=== PATIENT | male | born 1995 | race African-American/Black ===

== ENCOUNTER 2025-01-13 18:43 | Emergency (ER) | payer BC, SELFPAY ==
[2025-01-13 18:45] VITALS: BP 101/74; PULSE 99; RESP 18; TEMP 36.6; O2SAT 97
[2025-01-13 19:44] VITALS: BP 120/70; PULSE 75; RESP 15; O2SAT 98
[2025-01-13 20:00] VITALS: PULSE 71; RESP 18; O2SAT 98
--- NOTE | 2025-01-13 20:13 | EX.ED.DYSGE1 ---
HPI History of Present Illness Chief Complaint: Hyperglycemia Informant: patient Onset/Context/Timing Onset: Today Context: Gradual Onset Timing: Continuous Quality: Aching Location: Abdomen Worsened by: Nothing Relieved by: Nothing Narrative Narrative: Patient presents with nausea, vomiting, and elevated blood sugars. Patient states he started having nausea and vomiting today. Patient states his blood sugars have been elevated since he ran out of his insulin. Patient states he ran out of insulin about a week ago. Patient states he had some blood in his emesis today when he vomited. Patient states it was only 1 time. Patient also states he is out of his metformin. Patient denies any visual changes. Patient denies any chest pain or shortness of breath. [facility] Medical History (Updated 01/14/25 @ 00:[address] Simon Huffman DO) Diabetes Physical exam, pre-employment Home Medications ?Medication ?Instructions ?Recorded ?Last Taken ?Type insulin regular hum U-500 conc 500 12 unit (0.024 mL) subcut BID #3 mL 01/14/25 Unknown Rx unit/mL(3 mL) subcut pen (Humulin R U-500 (Conc) Insulin Kwikpen) metformin 500 mg tablet 1,000 mg (2 x 500 mg) PO BID #40 01/14/25 Unknown Rx tabs Allergy/AdvReac Type Severity Reaction Status Date / Time No Known Allergies Allergy Verified 01/13/25 18:47 Surgical History (Updated 01/13/25 @ 23:[address] Simon Huffman DO) Hx of circumcision Social History Smoking Status: Never smoker ROS ROS ED Constitutional Constitutional ED: Reports chills; Denies fever(s) Eyes Eyes: Denies blurry vision or change in vision ENT ENT ED: Denies rhinorrhea or sore throat Cardiovascular Cardiovascular: Denies chest pain or palpitations Respiratory/Chest Respiratory/Chest: Denies cough or dyspnea Gastrointestinal Gastrointestinal: Denies nausea or vomiting Genitourinary Genitourinary ED: Denies dysuria or hematuria Musculoskeletal Musculoskeletal: Denies back pain or neck pain Integumentary Denies abscess or rash Neurologic Neurologic: Reports headache(s); Denies weakness Allergic/Immunologic Allergic/Immunologic ED: Denies mouth swelling or urticaria EXAM Physical Exam Const Vital Signs: 01/13/25 18:45 01/13/25 19:44 01/13/25 20:00 Temperature 97.9 F Temperature Source Oral Pulse Rate 99 75 71 Respiratory Rate 18 15 18 Respiratory Effort Respiratory Pattern Blood Pressure 101/74 120/70 Blood Pressure Mean 83 86 Pulse Ox 97 98 98 Oxygen Delivery Method Room Air Room Air Room Air 01/13/25 20:08 01/13/25 21:00 01/13/25 22:00 Temperature Temperature Source Pulse Rate 74 67 Respiratory Rate 13 22 H Respiratory Effort Normal Respiratory Pattern Normal Blood Pressure 125/65 H 117/76 Blood Pressure Mean 85 89 Pulse Ox 100 98 Oxygen Delivery Method Room Air Room Air 01/13/25 23:00 01/14/25 00:00 Temperature 98 F Temperature Source Pulse Rate 67 67 Respiratory Rate 18 19 H Respiratory Effort Respiratory Pattern Blood Pressure 109/59 L 110/59 L Blood Pressure Mean 75 76 Pulse Ox 97 100 Oxygen Delivery Method Room Air Positive well nourished and well developed General Appearance ED: well developed and NAD HEENT Reports moist mucous membranes Neck supple and no JVD Resp normal respiratory effort and clear to auscultation bilaterally Cardio regular rate and regular rhythm GI non-distended Palpation: soft and tender epigastric, LLQ, RLQ, LUQ, RUQ, periumbilical and suprapubic Extremity normal to inspection General Extremety ED: Negative for edema or tenderness General Extremity: Negative for edema Neuro oriented x3, CN's II-XII intact bilaterally and no sensory deficits noted Sensorium / Orientation: alert Motor Exam: strength 5/5 throughout Psych mental status grossly normal MDM MDM MDM Narrative Medical decision making narrative: Differential diagnosis includes hyperglycemia, diabetic ketoacidosis, hyperglycemic hyperosmolar nonketotic state, dehydration, viral illness, and electrolyte abnormality. CBC will be obtained to assess for leukocytosis and anemia. Comprehensive metabolic profile will be obtained to assess for hepatic function, renal function, and electrolyte abnormality. Lipase will be obtained to assess for pancreatitis. Beta hydroxybutyrate will be obtained to assess for DKA. Serum lactate will be obtained to assess for sepsis. Urinalysis will be obtained to assess for urinary tract infection and hematuria. Venous blood gas will be obtained to assess for pH status. History & Record Review Additional record(s) reviewed:: Prior outpatient record Lab Data Attestation: I reviewed the patient's lab results. Lab results narrative: CBC was reviewed and was within normal limits. Comprehensive metabolic profile was reviewed. Glucose was elevated at 639. CO2 was normal at 26. Chloride was slightly low at 93. Anion gap was minimally elevated at 16. Alkaline phosphatase was slightly elevated at 213. The remainder is within normal limits. Lipase was reviewed and was normal at 15. Beta hydroxybutyrate is slightly elevated at 3.1. Urinalysis was reviewed. There is no evidence of urinary tract infection or hematuria. Urine glucose was 1000. Urine ketones were 50. Labs: Laboratory Results - last 24 hr 01/13/25 01/13/25 01/13/25 19:15 20:20 21:08 WBC 7.2 RBC 5.64 Hgb 15.7 Hct 44.0 MCV 78.0 L MCH 27.8 MCHC 35.7 RDW Std Deviation 30.5 L RDW Coeff of Rehana 10.9 L Plt Count 207 MPV 12.4 H Immature Gran % (Auto) 0.100 Neut % (Auto) 76.6 H Lymph % (Auto) 15.7 L [place] % (Auto) 5.2 Eos % (Auto) 2.0 Baso % (Auto) 0.4 Absolute Neuts (auto) 5.5 Absolute Lymphs (auto) 1.12 Nucleated RBC % 0 Sodium 136 Potassium 4.2 Chloride 93 L Carbon Dioxide 26.0 Anion Gap 16 H BUN 10 Creatinine 1.15 Est GFR (MDRD) Non-Af 89 BUN/Creatinine Ratio 8.6 L Glucose 639 H* Lactic Acid < 1.0 Calcium 9.8 Total Bilirubin 0.36 AST 40 H ALT 44 Alkaline Phosphatase 213 H Total Protein 7.9 Albumin 4.8 Globulin 3.1 Albumin/Globulin Ratio 1.5 Lipase 15 b-Hydroxybutyric mmol/L 3.1 H Urine Color Yellow Urine Clarity Clear Urine pH 6.5 Ur Specific [place] 1.010 Urine Protein Negative Urine Glucose (UA) 1000 H Urine Ketones 50 H Urine Occult Blood Negative Urine Nitrite Negative Urine Bilirubin Negative Urine Urobilinogen Normal Ur Leukocyte Esterase Negative Urine RBC 0 SEEN Urine WBC 0-5 SEEN Ur Squamous Epith Cells 0 SEEN Urine Bacteria 0 SEEN Urine Mucus 0 SEEN POC Glucose 01/13/25 21:45 WBC RBC Hgb Hct MCV MCH MCHC RDW Std Deviation RDW Coeff of Rehana Plt Count MPV Immature Gran % (Auto) Neut % (Auto) Lymph % (Auto) [place] % (Auto) Eos % (Auto) Baso % (Auto) Absolute Neuts (auto) Absolute Lymphs (auto) Nucleated RBC % Sodium Potassium Chloride Carbon Dioxide Anion Gap BUN Creatinine Est GFR (MDRD) Non-Af BUN/Creatinine Ratio Glucose Lactic Acid Calcium Total Bilirubin AST ALT Alkaline Phosphatase Total Protein Albumin Globulin Albumin/Globulin Ratio Lipase b-Hydroxybutyric mmol/L Urine Color Urine Clarity Urine pH Ur Specific [place] Urine Protein Urine Glucose (UA) Urine Ketones Urine Occult Blood Urine Nitrite Urine Bilirubin Urine Urobilinogen Ur Leukocyte Esterase Urine RBC Urine WBC Ur Squamous Epith Cells Urine Bacteria Urine Mucus POC Glucose 436 H ABG Data Attestation: I personally reviewed and interpreted this ABG as follows: Interpretation: Venous blood gas was reviewed. pH was normal at 7.43. pO2 is low at 45, bicarb was normal at 29. Oxygen saturation was 82%. ABG results: ABG 01/13/25 20:41 Specimen Type JJ Sample Site Not entered VBG pH 7.43 H VBG pO2 45 H VBG HCO3 29 H VBG Total CO2 30 VBG O2 Sat (Calc) 82 H VBG Base Excess 4 H POC Mix VBG pCO2 Pt Tmp 43.3 O2 Delivery Device Room Air Treatment and Re-Evaluation :: Patient was given IV fluids and Zofran. Patient was feeling somewhat better on reevaluation. Because of the elevated blood sugar, patient was given a dose of insulin and a repeat bolus of normal saline. BGT was repeated and was 436. Patient was feeling better on reevaluation. Patient was advised of his findings. Patient was given a refill for his insulin and metformin. Patient was instructed to follow-up with a primary care physician in 5 to 7 days. Patient was instructed to return if worse in any way. Patient understood and was agreeable with the plan. All questions were answered. Discharge Plan Triage Chief Complaint: Hyperglycemia ED Provider: Simon Huffman Dx/Rx/DC Orders Clinical Impression: Hyperglycemia, Nausea and vomiting Instructions: ED Diabetic Hyperglycemia Prescriptions: Continued metformin 500 mg tablet 1,000 mg PO BID Qty: 40 0RF Humulin R U-500 (Conc) Kwikpen 500 unit/mL (3 mL) insulin pen 12 unit subcut BID Qty: 3 0RF Rx Instructions: 12 UNITS IN THE MORNING, 7 UNITS QHS Primary Care Provider: Care Physician,No Primary Referrals: Yamile Jones MD [Med Staff - Handling Tech] - 5-7 Days Care Physician,No Primary [Primary Care Provider] - Print Language: Persian Disposition Disposition: Home, Self Care
[2025-01-13] MEDS: 0.9% Normal Saline (1000mL) 1,000 ML 1000 ML IV ×2 (20:20→21:47)
[2025-01-13 20:38] LABS: Hematocrit 44.0 % (40-54); Hemoglobin 15.7 g/dL (13.0-16.5); Immature Granulocytes Count 0.010 X10^3/uL (0.0-0.0); Mean Corp Hgb Conc 35.7 g/dL (32-36); Mean Corpuscular Volume 78.0 fL (80-94); Mean Platelet Vol. 12.4 fl (6.2-12.0); NRBC Flagged by Analyzer 0 % (0-5); Platelet Count 207 K/mm3 (150-450); RBC Distribution Width CV 10.9 % (11.6-14.6); RBC Distribution Width SD 30.5 fl (35.1-43.9); Red Blood Count 5.64 M/mm3 (4.6-6.2); White Blood Count 7.2 K/mm3 (4.4-11.0)
[2025-01-13 20:45] LABS: SITE Not entered; VBG BASE EXCESS 4 mmol/L (-1.0-3.5); VBG PO2 45 mmHg (25-40); VBG SO2 82 % (50-70); VBG TCO2 30 mmol/L (23-33)
[2025-01-13 21:00] VITALS: BP 125/65; PULSE 74; RESP 13; O2SAT 100
[2025-01-13 21:13] LABS: BETA-HYDROXYBUTYRATE 3.1 mmol/L (0.0-0.3); Lipase 15 U/L (13-75)
[2025-01-13 21:14] LABS: Mucous, Urine 0 SEEN /hpf (<or=2+); Red Blood Cells-Urine 0 SEEN /hpf (0-5); Squamous Epithelial Cells - UA 0 SEEN /hpf (0-5)
[2025-01-13 21:25] LABS: AST(SGOT) 40 U/L (<=37); Alanine Aminotransfer ALT/SGPT 44 U/L (<=46); Albumin, Serum 4.8 g/dL (3.5-5.0); Alkaline Phosphatase 213 U/L (40-129); Anion Gap 16 (5-15); BUN 10 mg/dL (4-19); BUN/Creat Ratio 8.6 RATIO (10-20); Calcium,Total 9.8 mg/dL (7.6-11.0); Carbon Dioxide 26.0 mmol/L (21.0-32.0); Chloride 93 mmol/L (98-108); Globulin 3.1 g/dL (2.2-4.2); Glucose 639 mg/dL (70-99); Potassium 4.2 mmol/L (3.3-5.1)
[2025-01-13 21:29] LABS: Color, Urine Yellow (Yellow); Glucose, Dipstick 1000 mg/dl (Normal); Ketone-Dipstick 50 mg/dl (Negative); Leukocyte Esterase-Dipstick Negative /ul (Negative); Nitrite-Dipstick Negative (Negative); Occult Blood-Urine Negative /ul (Negative); Protein-Dipstick Negative (Negative); Specific Gravity, Urine 1.010 (1.002-1.030); Urine Bilirubin Dipstick Negative (Negative)
[2025-01-13 21:35] VITALS: BMI 20.4
[2025-01-13 21:51] VITALS: BMI 20.4
[2025-01-13 22:00] VITALS: BP 117/76; PULSE 67; RESP 22; O2SAT 98
[2025-01-13 23:00] VITALS: BP 109/59; PULSE 67; RESP 18; O2SAT 97
[2025-01-14] VITALS: BP 110/59; PULSE 67; RESP 19; TEMP 36.6; O2SAT 100
--- NOTE | 2025-01-14 01:21 | ED.RN ---
Blood glucose checked prior to discharge, result 79. Pt given sandwich, cheese and trail mix to eat.
== END 2025-01-14 01:22 | disposition home or self-care (01) ==
PROVIDERS: Emergency Provider Emergency Medicine; Visit Provider Emergency Medicine
DX: E11.65 Type 2 diabetes mellitus with hyperglycemia (principal); Z79.4 Long term (current) use of insulin; R11.2 Nausea with vomiting, unspecified; Z79.84 Long term (current) use of oral hypoglycemic drugs
CPT/HCPCS: 80053; 81001; 82010; 82803; 82962; 83605; 83690; 85025; 96361; 96374; 99285; A4216; J2405

== ENCOUNTER 2025-03-08 08:46 | Observation (INO) | payer SELFPAY ==
[2025-03-08 08:47] VITALS: BP 136/86; PULSE 93; RESP 18; TEMP 37.1; O2SAT 93; BMI 21.0
--- NOTE | 2025-03-08 09:11 | EX.ED.DYSGE1 ---
HPI History of Present Illness Chief Complaint: Hyperglycemia Narrative Narrative: Patient is a 29-year-old male with past medical history of type 1 diabetes who presents to the emergency department for elevated blood glucose. Patient states that yesterday he ran out of his insulin and notes that this morning he was not feeling well checked his glucose and was noted to be in the 500s prompting him to come here to the emergency department to be further evaluated. Patient states that before going to bed last night he felt his usual self and had no complaints. [facility] Medical History Diabetes Physical exam, pre-employment Home Medications ?Medication ?Instructions ?Recorded ?Last Taken ?Type insulin regular hum U-500 conc 500 12 unit subcut DAILY 03/08/25 03/07/25 History unit/mL(3 mL) subcut pen (Humulin R U-500 (Conc) Insulin Kwikpen) insulin regular human 100 unit/mL 7 unit subcut QHS 03/08/25 03/07/25 History injection solution (Humulin R Regular U-100 Insulin) metformin 500 mg tablet 500 mg PO BID 03/08/25 03/07/25 History Allergy/AdvReac Type Severity Reaction Status Date / Time No Known Allergies Allergy Verified 03/08/25 08:47 Surgical History Hx of circumcision Social History Smoking Status: Never smoker ROS ROS ED ROS Narrative Constitutional: Denies any fevers, chills, headaches Eyes: Denies double vision Cardiovascular: Denies chest pain Respiratory: Denies shortness of breath denies coughing Abdomen: Complains of nausea denies any abdominal pain vomiting diarrhea : Denies any urinary symptoms Neurological: Denies any numbness, weakness, tingling Musculoskeletal: Denies back pain Skin: Denies any rashes or lesions EXAM Physical Exam Narrative Exam Narrative: General: Patient lying in bed resting comfortably did not appear to be acute distress Head: Atraumatic, normocephalic Eyes: PERRL bilaterally, EOMI bilaterally, no conjunctival injection noted Neck: Soft, supple, trachea midline Cardiovascular: Regular rate and rhythm no murmurs gallops rubs noted Respiratory: Clear to auscultation bilaterally no rales rhonchi or wheezes noted Abdomen: Soft, nondistended, no tenderness to palpation Extremities: +5/5 strength noted in the bilateral lower extremity Neurological: Patient follow commands and that he was at [facility] the year is 2024 Skin: Warm, dry, patient has a well-healing wound noted to his left forearm when inquiring about this as he did not tell me about this he states that he burned his arm last Saturday at work no concern for infection in this area at this point in time no surrounding redness no purulent discharge scabbed over Const Vital Signs: 03/08/25 08:47 03/08/25 09:21 03/08/25 10:22 Temperature 98.7 F Temperature Source Oral Pulse Rate 93 78 Respiratory Rate 18 16 Respiratory Effort Normal Respiratory Pattern Normal Blood Pressure 136/86 H Blood Pressure Mean 102 Pulse Ox 93 100 Oxygen Delivery Method Room Air 03/08/25 11:04 Temperature 98.1 F Temperature Source Oral Pulse Rate 86 Respiratory Rate 16 Respiratory Effort Respiratory Pattern Blood Pressure 102/56 L Blood Pressure Mean 71 Pulse Ox 96 Oxygen Delivery Method Room Air MDM MDM MDM Narrative Medical decision making narrative: Patient is a 29-year-old male who presents to the emergency department chief complaint of hyperglycemia. On the differential diagnose includes but not limited to hyperglycemia secondary to a running out of his insulin, DKA, HHS. Once workup is obtained reviewed he will be reevaluated. Patient be given 2 L of fluid, 10 units subcutaneous insulin. Patient's CBC was reviewed which showed a leukocytosis of 13,000 this likely reactive, hemoglobin 15, platelet count of 212. Patient's venous gas showed a pH 7.41, sodium was 133, potassium 3.3 he will be given 40 mill equivalents of supplementation here. Patient's anion gap was noted be 18, carbon dioxide was 20.9, glucose elevated to 466. Patient's beta hydroxybutyrate elevated 2.6, urinalysis reviewed and showed 50 ketones of thousand glucose. Patient's bedside glucose was noted be 303 on repeat after the insulin. At this point time will discuss case with hospitalist for admission for his diabetes management as he is likely early onset DKA although at this point time do not believe he requires insulin drip however will discuss with them in regards to further management. After discussion with hospitalist Dr. Kotsonis he agrees that the patient does not require insulin drip and will accept the patient to the hospital for admission. Patient was notified is agreeable this plan all question concerns answered at bedside. Lab Data Labs: Laboratory Results - last 24 hr 03/08/25 03/08/25 03/08/25 08:34 09:11 10:52 WBC 13.0 H RBC 5.50 Hgb 15.1 Hct 43.0 MCV 78.2 L MCH 27.5 MCHC 35.1 RDW Std Deviation 31.0 L RDW Coeff of Rehana 11.0 L Plt Count 212 MPV 12.7 H Immature Gran % (Auto) 0.400 Neut % (Auto) 73.9 H Lymph % (Auto) 18.5 L [place] % (Auto) 5.7 Eos % (Auto) 1.2 Baso % (Auto) 0.3 Absolute Neuts (auto) 9.6 H Absolute Lymphs (auto) 2.40 Nucleated RBC % 0 Sodium 133 Potassium 3.3 Chloride 95 L Carbon Dioxide 20.9 L Anion Gap 18 H BUN 15 Creatinine 1.04 Estim Creat Clear Calc 96.62 Est GFR (MDRD) Non-Af 100 BUN/Creatinine Ratio 14.3 Glucose 466 H* Calcium 9.8 Total Bilirubin 0.31 AST 28 ALT 28 Alkaline Phosphatase 139 H Total Protein 7.5 Albumin 4.4 Globulin 3.0 Albumin/Globulin Ratio 1.5 b-Hydroxybutyric mmol/L 2.6 H Urine Color Yellow Urine Clarity Clear Urine pH 6.0 Ur Specific [place] 1.015 Urine Protein Negative Urine Glucose (UA) 1000 H Urine Ketones 50 H Urine Occult Blood Negative Urine Nitrite Negative Urine Bilirubin Negative Urine Urobilinogen Normal Ur Leukocyte Esterase Negative Urine RBC 0 SEEN Urine WBC 0 SEEN Ur Squamous Epith Cells 0 SEEN Urine Bacteria 0 SEEN Urine Mucus 0 SEEN POC Glucose 376 H 03/08/25 10:59 WBC RBC Hgb Hct MCV MCH MCHC RDW Std Deviation RDW Coeff of Rehana Plt Count MPV Immature Gran % (Auto) Neut % (Auto) Lymph % (Auto) [place] % (Auto) Eos % (Auto) Baso % (Auto) Absolute Neuts (auto) Absolute Lymphs (auto) Nucleated RBC % Sodium Potassium Chloride Carbon Dioxide Anion Gap BUN Creatinine Estim Creat Clear Calc Est GFR (MDRD) Non-Af BUN/Creatinine Ratio Glucose Calcium Total Bilirubin AST ALT Alkaline Phosphatase Total Protein Albumin Globulin Albumin/Globulin Ratio b-Hydroxybutyric mmol/L Urine Color Urine Clarity Urine pH Ur Specific [place] Urine Protein Urine Glucose (UA) Urine Ketones Urine Occult Blood Urine Nitrite Urine Bilirubin Urine Urobilinogen Ur Leukocyte Esterase Urine RBC Urine WBC Ur Squamous Epith Cells Urine Bacteria Urine Mucus POC Glucose 303 H ABG Data ABG results: ABG 03/08/25 09:51 Specimen Type JJ Sample Site Not entered VBG pH 7.41 VBG pO2 79 H VBG HCO3 24 VBG Total CO2 25 VBG O2 Sat (Calc) 96 H VBG Base Excess -1 POC Mix VBG pCO2 Pt Tmp 38.3 L O2 Delivery Device Not entered Discharge Plan Dx/Rx/DC Orders Clinical Impression: Hyperglycemia, History of diabetes mellitus, type I Disposition Disposition: Acute Care Hospital [facility]
[2025-03-08 09:29] LABS: Hematocrit 43.0 % (40-54); Hemoglobin 15.1 g/dL (13.0-16.5); Immature Granulocytes Count 0.050 X10^3/uL (0.0-0.0); Mean Corp Hgb Conc 35.1 g/dL (32-36); Mean Corpuscular Volume 78.2 fL (80-94); Mean Platelet Vol. 12.7 fl (6.2-12.0); NRBC Flagged by Analyzer 0 % (0-5); Platelet Count 212 K/mm3 (150-450); RBC Distribution Width CV 11.0 % (11.6-14.6); RBC Distribution Width SD 31.0 fl (35.1-43.9); Red Blood Count 5.50 M/mm3 (4.6-6.2); White Blood Count 13.0 K/mm3 (4.4-11.0)
[2025-03-08 09:55] LABS: BETA-HYDROXYBUTYRATE 2.6 mmol/L (0.0-0.3)
[2025-03-08 09:55] LABS: SITE Not entered; VBG BASE EXCESS -1 mmol/L (-1.0-3.5); VBG PO2 79 mmHg (25-40); VBG SO2 96 % (50-70); VBG TCO2 25 mmol/L (23-33)
[2025-03-08 09:58] LABS: AST(SGOT) 28 U/L (<=37); Alanine Aminotransfer ALT/SGPT 28 U/L (<=46); Albumin, Serum 4.4 g/dL (3.5-5.0); Alkaline Phosphatase 139 U/L (40-129); Anion Gap 18 (5-15); BUN 15 mg/dL (4-19); BUN/Creat Ratio 14.3 RATIO (10-20); Calcium,Total 9.8 mg/dL (7.6-11.0); Carbon Dioxide 20.9 mmol/L (21.0-32.0); Chloride 95 mmol/L (98-108); Estimated Creatinine Clearance 96.62 ml/min (50-250); Globulin 3.0 g/dL (2.2-4.2); Glucose 466 mg/dL (70-99); Potassium 3.3 mmol/L (3.3-5.1)
[2025-03-08] MEDS: 0.9% Normal Saline (1000mL) 1,000 ML 999 ML IV ×2 (10:20)
[2025-03-08 10:22] VITALS: PULSE 78; RESP 16; O2SAT 100
[2025-03-08 11:01] LABS: Mucous, Urine 0 SEEN /hpf (<or=2+); Red Blood Cells-Urine 0 SEEN /hpf (0-5); Squamous Epithelial Cells - UA 0 SEEN /hpf (0-5)
[2025-03-08 11:04] VITALS: BP 102/56; PULSE 86; RESP 16; TEMP 36.7; O2SAT 96
[2025-03-08 11:04] LABS: Color, Urine Yellow (Yellow); Glucose, Dipstick 1000 mg/dl (Normal); Ketone-Dipstick 50 mg/dl (Negative); Leukocyte Esterase-Dipstick Negative /ul (Negative); Nitrite-Dipstick Negative (Negative); Occult Blood-Urine Negative /ul (Negative); Protein-Dipstick Negative (Negative); Specific Gravity, Urine 1.015 (1.002-1.030); Urine Bilirubin Dipstick Negative (Negative)
[2025-03-08 12:20] VITALS: BP 112/51; PULSE 83; RESP 19; TEMP 36.6; O2SAT 97
[2025-03-08 13:14] VITALS: BMI 20.2
[2025-03-08] MEDS: 0.9% Normal Saline (1000mL) 1,000 ML 125 ML IV (13:23)
[2025-03-08 13:32] VITALS: BP 98/53; PULSE 66; RESP 17; TEMP 36.4; O2SAT 97
[2025-03-08] MEDS: Insulin Glargine-YFGN 100 UNIT/ML Pen 10 UNIT SC (15:15)
[2025-03-08] MEDS: 0.9% Saline Lock 10 ML Syringe IV (15:16)
[2025-03-08 15:41] LABS: Anion Gap 13 (5-15); BUN 11 mg/dL (4-19); BUN/Creat Ratio 14.5 RATIO (10-20); Calcium,Total 8.8 mg/dL (7.6-11.0); Carbon Dioxide 21.1 mmol/L (21.0-32.0); Chloride 102 mmol/L (98-108); Estimated Creatinine Clearance 128.59 ml/min (50-250); Glucose 201 mg/dL (70-99); Potassium 3.8 mmol/L (3.3-5.1)
[2025-03-08 16:50] LABS: BETA-HYDROXYBUTYRATE 1.7 mmol/L (0.0-0.3)
--- NOTE | 2025-03-08 17:03 | HP.PCM.HOS_ITS ---
HPI - General General Date of Admission: 03/08/25 HPI Narrative MYLA RAZA, is a 29 M who presents to the the hospital with dehydration and lab work consistent with possible DKA. He states that he is a type I diabetic on insulin and metformin and that he ran out of his insulin because he was delayed in picking it up from the pharmacy restocked did not he did not have a prescription. He is gone about 24 to 36 hours without his insulin and he presented to the hospital. He had gone to an outside facility where they tested his blood sugar and it was in the 500s. Here in the emergency room it was initially 466 and he was given insulin and it came down into the 300s. Beta hydroxybutyrate was 2.6 and he did have ketones in his urine. He was admitted for observation to the PCU secondary to the fact that he had very responsive blood sugar and had received 2 L of fluid in the emergency room prior to admission and stating that he was feeling much better. [facility] Medical History Diabetes Physical exam, pre-employment Home Medications ?Medication ?Instructions ?Recorded ?Last Taken ?Type insulin regular hum U-500 conc 500 12 unit subcut CHUCHO Y diabetes 03/08/25 03/07/25 History unit/mL(3 mL) subcut pen (Humulin R U-500 (Conc) Insulin Kwikpen) metformin 500 mg tablet 500 mg PO BID 30 days #60 ta bs 03/08/25 Unknown Rx Allergy/AdvReac Type Severity Reaction Status Date / Time No Known Allergies Allergy Verified 03/08/25 08:47 Family History no significant family his no significant family history Surgical History Hx of circumcision Social History Smoking Status: Never smoker ROS Constitutional Constitutional: Denies chills, fatigue, fever(s) or malaise Eyes Eyes: Denies blurry vision ENT HEENT: Denies headache(s) or nasal discharge Cardiovascular Cardiovascular: Denies chest pain, dyspnea on exertion or syncope Respiratory/Chest Respiratory/Chest: Denies cough, shortness of breath at rest or shortness of breath with exertion Gastrointestinal Gastrointestinal: Reports nausea; Denies constipation, diarrhea or vomiting Genitourinary Genitourinary: Denies dysuria Neurologic Neurologic: Denies focal weakness, numbness or tremor(s) Psychiatric Psychiatric: Denies anxiety or depression Vital Signs Vital Signs Vital Signs: 03/08/25 08:47 03/08/25 09:21 03/08/25 10:22 Temperature 98.7 F Temperature Source Oral Pulse Rate 93 78 Respiratory Rate 18 16 Respiratory Effort Normal Respiratory Pattern Normal Blood Pressure 136/86 H Blood Pressure Mean 102 Blood Pressure Source Blood Pressure Position Blood Pressure Location Pulse Ox 93 100 Oxygen Delivery Method Room Air 03/08/25 11:04 03/08/25 12:20 03/08/25 13:32 Temperature 98.1 F 97.8 F 97.6 F L Temperature Source Oral Temporal Pulse Rate 86 83 66 Respiratory Rate 16 19 H 17 Respiratory Effort Respiratory Pattern Blood Pressure 102/56 L 112/51 L 98/53 L Blood Pressure Mean 71 71 68 Blood Pressure Source Monitor Blood Pressure Position Supine Blood Pressure Location Left Arm Pulse Ox 96 97 97 Oxygen Delivery Method Room Air Room Air 03/08/25 13:34 Temperature Temperature Source Pulse Rate Respiratory Rate Respiratory Effort Respiratory Pattern Blood Pressure Blood Pressure Mean Blood Pressure Source Blood Pressure Position Blood Pressure Location Pulse Ox Oxygen Delivery Method Room Air Weight Weight: 136 lb 10.986 oz Body Mass Index (BMI) 20.2 Physical Exam Narrative General: Alert, Oriented x3, Cooperative, No apparent distress HEENT: Atraumatic, PERRLA, EOMI, Normocephalic Oral: Dry mucosa Neck: Supple, No JVD Lungs: Clear to auscultation, Normal air movement, No rhonchi, No wheeze, No rales Cardiovascular: Regular rate, Regular Rhythm, Normal S1, Normal S2, No murmurs Abdomen: Soft, Non Tender, Non-Distended, No Hepato-splenomegaly Extremities: No edema, Capillary Refill Less than 3 Seconds Skin: No rashes, No breakdown Musculoskeletal: No Tenderness to Palpation of Joints or Extremities Neurological: No focal neurological deficits, moves all extremities Psych/Mental Status: Normal Affect, Appropriate Results Lab / Micro Data 03/08/25 08:34 03/08/25 13:39 Labs: Laboratory Results - last 24 hr 03/08/25 08:34: WBC 13.0 H, RBC 5.50, Hgb 15.1, Hct 43.0, MCV 78.2 L, MCH 27.5, MCHC 35.1, RDW Std Deviation 31.0 L, RDW Coeff of Rehana 11.0 L, Plt Count 212, MPV 12.7 H, Immature Gran % (Auto) 0.400, Neut % (Auto) 73.9 H, Lymph % (Auto) 18.5 L, [place] % (Auto) 5.7, Eos % (Auto) 1.2, Baso % (Auto) 0.3, Absolute Neuts (auto) 9.6 H, Absolute Lymphs (auto) 2.40, Nucleated RBC % 0, Sodium 133, Potassium 3.3, Chloride 95 L, Carbon Dioxide 20.9 L, Anion Gap 18 H, BUN 15, Creatinine 1.04, Estim Creat Clear Calc 96.62, Est GFR (MDRD) Non-Af 100, BUN/Creatinine Ratio 14.3, Glucose 466 H*, Calcium 9.8, Total Bilirubin 0.31, AST 28, ALT 28, A lkaline Phosphatase 139 H, Total Protein 7.5, Albumin 4.4, Globulin 3.0, Albumin/Globulin Ratio 1.5, b-Hydroxybutyric mmol/L 2.6 H 03/08/25 09:11: POC Glucose 376 H 03/08/25 10:52: Urine Color Yellow, Urine Clarity Clear, Urine pH 6.0, Ur Specific [place] 1.015, Urine Protein Negative, Urine Glucose (UA) 1000 H, Urine Ketones 50 H, Urine Occult Blood Negative, Urine Nitrite Negative, Urine Bilirubin Negative, Urine Urobilinogen Normal, Ur Leukocyte Esterase Negative, Urine RBC 0 SEEN, Urine WBC 0 SEEN, Ur Squamous Epith Cells 0 SEEN, Urine Bacteria 0 SEEN, Urine Mucus 0 SEEN 03/08/25 10:59: POC Glucose 303 H 03/08/25 13:12: POC Glucose 195 H 03/08/25 13:39: Sodium 136, Potassium 3.8, Chloride 102, Carbon Dioxide 21.1, Anion Gap 13, BUN 11, Creatinine 0.75, Estim Creat Clear Calc 128.59, Est GFR (MDRD) Non-Af 126, BUN/Creatinine Ratio 14.5, Glucose 201 H, Calcium 8.8, b- Hydroxybutyric mmol/L 1.7 H ABG Data ABG results: ABG 03/08/25 09:51 Specimen Type JJ Sample Site Not entered VBG pH 7.41 VBG pO2 79 H VBG HCO3 24 VBG Total CO2 25 VBG O2 Sat (Calc) 96 H VBG Base Excess -1 POC Mix VBG pCO2 Pt Tmp 38.3 L O2 Delivery Device Not entered Assessment & Plan Assessment/Plan (1) Hyperglycemia: PLAN: Plan 1. Hyperglycemia in the setting of type 1 diabetes ? He is not acidotic based on a VBG with a pH of 7.41 however he did have an anion gap of 18 with a bicarb of 20.9 on admission ? He did have ketones in his urine and his beta hydroxybutyrate was 2.6 on admission ? Will continue with sliding scale insulin as well as giving him 10 units of Lantus ? Continue with IV fluids he is already received 2 L in the emergency room we will place him on normal saline at 125 cc/hr ? I did call his pharmacy and they stated that he was delayed in picking up his prescription today had restocked it and were unable to fill it when he came by over the weekend ? He also takes metformin and he states that his PCP cut down his dosage from 1000 g p.o. twice daily to 500 mg p.o. twice daily ? He is saying that he is feeling pretty good much better than when he came in and he was inquiring to whether or not he could be discharged home since he is self-pay he is hesitant about spending the night DVT: Ambulation 75 minutes was spent on direct patient care, including documentation as well as chart review and collaboration with colleagues, and care coordination Charges/Coding Visit Charges Inpatient E&M: 81586 Init Hosp L3
--- NOTE | 2025-03-08 17:03 | DCINST_ITS ---
Discharge Instructions DC O2, CPAP, BIPAP needs Home O2 Discharge instructions: No Dressing / Incision Discharge Activity: Return to Normal Activity Dressing / Incision Call your doctor if you observe: Fever of 101 or Higher, Shortness of breath, Dizziness, Fainting spells, Swelling in the ankles, Chest pain and Increased palpitations (irregular heartbeat) Follow Up Care Test Results: Test results from this visit will be discussed in further detail at your follow- up appointment, if applicable. Discharge Plan Admission Admit Date/Time: 03/08/25 12:01 Attending Provider: Ildefonso To Primary Care Provider: Care PhysicianHilary Primary Instructions Patient Instructions: Diabetes Food Tips Ch, Diabetes Carbs Fats Protein Discharge Orders/Prescriptions Prescriptions: Continued Humulin R U-500 (Conc) Kwikpen 500 unit/mL (3 mL) insulin pen 12 unit subcut DAILY Rx Instructions: 12 UNITS IN THE MORNING, 7 UNITS QHS Changed metformin 500 mg tablet 500 mg PO BID 30 Days Qty: 60 1RF Discontinued Humulin R Regular U-100 Insuln 100 unit/mL solution 7 unit subcut QHS Referrals / Follow Up: Care Physician,Hilary Primary [Primary Care Provider, Medical] - Within 1 Week Disposition Disposition (needs filled in before D/C Order can be placed): Home, Self Care
[2025-03-08 17:05] VITALS: BP 112/71; PULSE 72; RESP 16; TEMP 36.5; O2SAT 96
== END 2025-03-08 18:13 | disposition home or self-care (01) ==
LOC: ED 12:07 → PCU 12:18
PROVIDERS: Admitting Provider Family Medicine; Emergency Provider Emergency Medicine; Visit Provider Family Medicine
DX: E10.65 Type 1 diabetes mellitus with hyperglycemia (principal); Z79.4 Long term (current) use of insulin; Z79.84 Long term (current) use of oral hypoglycemic drugs; E86.0 Dehydration
CPT/HCPCS: 36415; 80048; 80053; 81001; 82010; 82803; 82962; 85025; 96361; 96365; 96374; 96375; 99221; 99285; A4216; G0378; J2405